=== PATIENT | female | born 1990 | race Caucasian/White ===

== ENCOUNTER → 2016-04-27 | Outpatient (CLI) | payer MEDICAID ==
[~2016-04-27] MED LIST: CEPH500C PO; FERR325T20 PO; IBUP-232 PO; OXYC1TAB63 PO; PREN1PAK2 PO; RANI150T PO; SENN1TAB PO; TUMS500C CHEW
== END ==
LOC: HPND 13:04
PROVIDERS: ATTEND Obstetrics & Gynecology
DX: O35.8XX0 Maternal care for other (suspected) fetal abnormality and damage, not applicable or unspecified (principal); O44.02 Complete placenta previa NOS or without hemorrhage, second trimester
CPT/HCPCS: 76811

== ENCOUNTER 2016-07-05 11:10 | Emergency (ER) | payer MEDICAID ==
[~2016-07-05 11:10] MED LIST changes: -CEPH500C PO; -FERR325T20 PO; -IBUP-232 PO; -OXYC1TAB63 PO; -SENN1TAB PO; -TUMS500C CHEW
--- NOTE | 2016-07-05 12:07 | PD ---
HPI Chief Complaint cramps Date Seen: July 05, 2016 Time Seen: 11:48 (Antonio Beach MD R1) Travel History International Travel<30 Days: No Contact w/Intl Traveler<30Days: No (Antonio Beach MD R1) History of Present Illness HPI 25 y/o at 36/0 weeks presents with cramps. States that around 0500 this morning, she started feeling occasional cramps. Currently, doing well, no pain. Thinks they may be Cobalt-chappell. Otherwise, no complaints. Denies any vaginal bleeding, loss of fluids. Endorses movement. [facility] Denies any chest pain, SOB, leg pain. No headache, RUQ pain, changes in vision, leg edema. No problems in this , other than marginal previa that has resolved. Did have sexual intercourse last night. Para: 0 : 1 (Antonio Beach MD R1) History Past Medical History Medical History: Denies Significant Hx (Antonio Beach MD R1) Obstetric History Obstetric History (Antonio Beach MD) Past Surgical History Narrative Surgical Arthroscopic right shoulder surgery (Antonio Beach MD R1) Family History Family History: Negative (Antonio Beach MD) Social History Alcohol Use: No Tobacco Use: No Substance Abuse: No (Antonio Beach MD R1) Allergies-Medications (Allergen,Severity, Reaction): Coded Allergies: No Known Allergies (Unverified , 06/26/16) Home Meds Active Scripts Ranitidine 150 Mg [id number] Mg PO BID #60 TAB Ref 2 Prov:Geraldine Larson 06/12/16 W/O Vit A W/ Fe Carbo Pack (Citranatal Dha Pack)27-1 & 250 Mg Pack1 Ea PO DAILY #60 BLISTER Ref 11 30 day supply. Prov:Geraldine Larson 02/24/16 Review of Systems General / Constitutional: Weight Gain, No: Fever, Weight Loss, Chills Eyes: No: Blurred Vision, Visual changes, Pain HENT: No: Headaches, Vertigo Cardiovascular: No: Irregular Rhythm, Chest Pain or Discomfort, Palpitations Respiratory: Cough, No: Short of Breath Gastrointestinal: No: Nausea, Vomiting, Diarrhea, Abdominal Pain Genitourinary: Frequency (post-coital), No: Urgency, Dysuria, Pelvic Pain, Discharge, Vaginal Bleeding Musculoskeletal: No: Limited ROM, Weakness Skin: No Rash, No Itching Neurologic: No: Weakness, Dizziness Psychiatric: No: Anxiety, Depression Endocrine: No: Heat Intolerance, Cold Intolerance (Antonio Beach MD R1) Physical Exam Narrative GENERAL: Well-nourished, well-developed patient. SKIN: Warm and dry. HEAD: Normocephalic and atraumatic. EYES: No scleral icterus. No injection or drainage. ENT: No nasal drainage noted. Mucous membranes pink. Airway patent. NECK: Supple, trachea midline. No JVD. CARDIOVASCULAR: Regular rate and rhythm without murmurs, gallops, or rubs. RESPIRATORY: Breath sounds equal bilaterally. No accessory muscle use. ABDOMEN/GI: Abdomen soft, non-tender, bowel sounds present, no rebound, no guarding Gravid to 36 weeks size GENITOURINARY: Sterile speculum exam performed: normal cervix. White, milky discharge. No blood. No pooling of fluids. External Genitalia: intact and normal in appearance Cervix: posterior Dilatation: 0 Effacement: 0 Station: -2 Presentation: vertex Membranes: intact Uterine Contractions: occasional FHT's: Category: 1 Baseline: 140 Reactive: yes Variability: moderate Decels: none EXTREMITIES: No cyanosis or edema. BACK: Nontender without obvious deformity. No CVA tenderness. NEUROLOGICAL: Awake and alert. Motor and sensory grossly within normal limits. Five out of 5 muscle strength in all muscle groups. Normal speech. (Antonio Beach MD R1) Data Data Vital Signs Reviewed: Yes (Antonio Beach MD R1) [facility] Medical Record Reviewed: Yes Interpretation(s) 25 y/o at 36/0 weeks presents with cramps/contractions. Category 1 FHT, occasional contraction Cervical exam: closed, posterior; speculum exam: milky discharge, no blood or fluids Pt had sexual intercourse last night, could be causing uterine stimulation - UA to rule out infection - Monitor FHT - Hydration (Antonio Beach MD R1) Medical Record Reviewed: No Interpretation(s) 25-year-old at 36 weeks Not in labor Prashant Chappell most likely secondary to recent sexual intercourse Urinalysis is negative no UTI Plan We'll discharge home Rest By mouth fluid hydration kick count Keep her next appointment on Sunday (Mikayla Cosme MD) Diagnosis Diagnosis: Primary Impression: 36 weeks gestation of Additional Impression: Prashant Chappell contractions Disposition: 01 DISCHARGE HOME Condition: Stable Addendum Remarks I rounded on the patient. I rounded with the resident. I reviewed the resident' s assessment and plan of care for this patient. I am in agreement with the plan of care for this patient. Urinalysis is negative Patient feeling much better Category 1 tracing We'll discharge home kick counts [facility] (Mikayla Cosme MD) Antonio Beach MD R1 July 05, 2016 12:06 Mikayla Cosme MD July 05, 2016 13:08
[2016-07-05 12:48] LABS: BACTERIA, URINE RARE /hpf; BLOOD, URINE NEG (NEG); COMMENT (UR) CULT NOT INDICATED; CULTURE IF INDICATED CULT NOT INDICATED; GLUCOSE,URINE NEG (NEG); KETONE, URINE NEG (NEG); MUCUS URINE FEW /lpf (OCC); NITRITE,URINE NEG (NEG); PH, URINE 6.5 (5.0-8.5); SQUAMOUS EPITHELIAL CELL URINE 22 /hpf (0-5); URINE COLOR YELLOW (YELLW/STRAW)
[2016-08-08] MEDS ORDERED: PREN1PAK2 PO (14:13)
== END 2016-07-05 13:18 | disposition home or self-care (01) ==
LOC: HOBED 11:10
DX: O47.03 False labor before 37 completed weeks of gestation, third trimester (principal); Z3A.36 36 weeks gestation of pregnancy
CPT/HCPCS: 59025; 81001

== ENCOUNTER 2016-07-26 20:40 | Inpatient (IN) | payer MEDICAID ==
[~2016-07-26] VITALS: Ht 154.9 cm; Wt 81.6 kg
[~2016-07-26 20:40] MED LIST changes: -RANI150T PO
[2016-07-26] MEDS ORDERED: LACTATED RINGER'S 1000 ML INJ 1,000 ML IV PRN (21:50)
[2016-07-26] MEDS: LACTATED RINGER'S 1000 ML INJ 1,000 ML IV SCH (21:50)
--- NOTE | 2016-07-26 21:50 | PD ---
History of Present Illness Date Seen: July 26, 2016 History of Present Illness Patient 25-year-old at 39 weeks [facility] by the [facility] who presents with spontaneous ruptured membranes. Amnio sure is positive. The patient is not cristofer and is having only very minimal pain and discomfort , heart rate tracing is reactive, no CTXs seen .US confirms a vertex presentation. Plan to admit the hospital augment labor as needed. Patient is GBS positive and will begin antibiotics, and postpone digital exam at that she is uncomfortable and or cristofer regularly and then get a baseline exam. Longer we can put off the digitally examining her and keep those digital exam to a minimum can decrease the rate of infection Niranjan He II, MD July 26, 2016 21:50
--- NOTE | 2016-07-26 21:57 | PD ---
HPI Chief Complaint rupture of membranes Date Seen: July 26, 2016 Time Seen: 21:49 Travel History International Travel<30 Days: No Contact w/Intl Traveler<30Days: No History of Present Illness HPI 25 y/o at 39/0 weeks presents for rupture of membranes. States she had a gush of fluids around 7 pm this evening. Denies any vaginal bleeding. Endorses movement. Denies any contractions. No other complaints. Denies any headache, dizziness, changes in vision, RUQ pain, dysuria, leg edema. Pt [facility] No history of hypertension this . Did have ultrasound done earlier in that showed, what sounds like placenta previa, but that has resolved. Para: 0 : 2 : 1 History Past Medical History Medical History: Denies Significant Hx Obstetric History Obstetric History - w/ D&C Past Surgical History Narrative Surgical Left arthroscopic shoulder Family History Family History: Negative Social History Alcohol Use: No Tobacco Use: No Substance Abuse: No Allergies-Medications (Allergen,Severity, Reaction): Coded Allergies: No Known Allergies (Unverified , 07/17/16) Home Meds Active Scripts W/O Vit A W/ Fe Carbo Pack (Citranatal Dha Pack)27-1 & 250 Mg Pack1 Ea PO DAILY #60 BLISTER Ref 11 30 day supply. Prov:Geraldine Larson 02/24/16 Review of Systems General / Constitutional: Weight Gain, No: Fever, Weight Loss, Chills Eyes: No: Blurred Vision HENT: No: Headaches, Vertigo Cardiovascular: No: Irregular Rhythm, Chest Pain or Discomfort, Palpitations Respiratory: No: Cough, Short of Breath Gastrointestinal: No: Nausea, Vomiting, Diarrhea, Abdominal Pain Genitourinary: No: Urgency, Frequency, Dysuria Musculoskeletal: No: Limited ROM, Weakness Skin: No Rash, No Itching Neurologic: No: Weakness, Dizziness Psychiatric: No: Anxiety, Depression Physical Exam Narrative GENERAL: Well-nourished, well-developed patient. SKIN: Warm and dry. HEAD: Normocephalic and atraumatic. EYES: No scleral icterus. No injection or drainage. ENT: No nasal drainage noted. Mucous membranes pink. Airway patent. NECK: Supple, trachea midline. No JVD. CARDIOVASCULAR: Regular rate and rhythm without murmurs, gallops, or rubs. RESPIRATORY: Breath sounds equal bilaterally. No accessory muscle use. ABDOMEN/GI: Abdomen soft, non-tender, bowel sounds present, no rebound, no guarding Gravid to 39 weeks size FHT's: Category: 1 Baseline: 150 Reactive: yes Variability: moderate Decels: none EXTREMITIES: No cyanosis or edema. BACK: Nontender without obvious deformity. No CVA tenderness. NEUROLOGICAL: Awake and alert. Motor and sensory grossly within normal limits. Five out of 5 muscle strength in all muscle groups. Normal speech. Data Data Vital Signs Reviewed: Yes Orders Ob (2e) Additional Admit Info (07/26/16 21:43) Admit To Inpatient (07/26/16 ) Vital Signs (Adult) .Per protocol (07/26/16 21:50) Heart (07/26/16 21:50) Amnioinfusion (07/26/16 21:50) Urinary Catheter Management .ONCE (07/26/16 21:50) Diet Liquid (07/27/16 Breakfast) Lactated Ringer's 1000 Ml Inj (Lr 1000 M (07/26/16 21:50) Lactated Ringer's 1000 Ml Inj (Lr 1000 M (07/26/16 21:50) Sodium Chlorid 0.9% 500 Ml Inj (Ns 500 M (07/26/16 22:00) Sodium Chlor 0.9% 1000 Ml Inj (Ns 1000 M (07/26/16 22:10) Lidocaine 1% Inj (50 Ml) (Xylocaine 1% I (07/26/16 22:00) Citric Acid-Sodium Citrate Liq (Bicitra (07/26/16 22:00) Ondansetron Inj (Zofran Inj) (07/26/16 22:00) Fentanyl Inj (Fentanyl Inj) (07/26/16 22:00) Fentanyl Inj (Fentanyl Inj) (07/26/16 22:00) Penicillin G Potassium Inj (Pfizerpen-G (07/26/16 22:00) Penicillin G Potassium Inj (Pfizerpen-G (07/27/16 02:00) Complete Blood Count With Diff (07/26/16 21:50) Hold Clot (07/26/16 21:50) Abo/Rh Blood Type (07/26/16 21:50) Urinalysis - C+S If Indicated (07/26/16 21:50) Resp Oxygen Non Rebreathe Mask (07/26/16 ) ^ Epidural / Intrathecal Infus (07/26/16 21:50) Oxytocin 30 Units-500ml Premix (Pitocin (07/26/16 22:00) Lidocaine 1% Inj (50 Ml) (Xylocaine 1% I (07/26/16 22:00) Light Mineral Oil (Muri-Lube Oil) (07/26/16 22:00) ^ Non Stress Test (07/26/16 21:50) Response To Medication .Post New Med Administration, Reaction (07/26/16 21:50) ^ Discontinue Medication (07/26/16 21:50) Oxytocin 30 Units-500ml Premix (Pitocin (07/26/16 22:00) Inpatient Certification (07/26/16 ) Specimen To Be Collected PRN (07/26/16 21:50) MDM Medical Record Reviewed: Yes Interpretation(s) 25 y/o at 39/0 weeks presents with SROM. Amnisure postive. Cervical exam deferred at this time to decrease risk of infection Category 1 FHT, no contractions Bedside ultrasound performed, shows vertex position GBS positive -Admit to labor and delivery -Start pitocin -Start Penicillin for GBS+ -Continuous FHT -Anticipate vaginal delivery Diagnosis Diagnosis: Primary Impression: Rupture of membranes with clear amniotic fluid Additional Impression: 39 weeks gestation of Antonio Beach MD R1 July 26, 2016 21:57 Diagnosis: Primary Impression: Rupture of membranes with clear amniotic fluid Additional Impression: 39 weeks gestation of Antonio Beach MD R1 July 26, 2016 21:57
[2016-07-26] MEDS ORDERED: LIDOCAINE HCL 1% 50 ML VIAL I-DERMAL PRN (22:00)
[2016-07-26] MEDS ORDERED: MINERAL OIL 10 ML VIAL TOPICAL PRN (22:00)
[2016-07-26] MEDS ORDERED: ONDANSETRON HCL 4 MG/2 ML VIAL IV PRN (22:00)
[2016-07-26] MEDS ORDERED: PENICILLIN G POTASSIUM INJ 5,000,000 UNITS in SODIUM CHLORIDE 0.9% INJ 100 ML IV ONE (22:00)
[2016-07-26] MEDS ORDERED: SODIUM CHLORID 0.9% 500 ML INJ 500 ML IV PRN (22:00)
[2016-07-26] MEDS ORDERED: LIDOCAINE HCL 1% 50 ML VIAL INFIL PRN (22:00)
[2016-07-26] MEDS ORDERED: OXYTOCIN 30 UNITS-500ML PREMIX 500 ML IV SCH (22:00)
[2016-07-26] MEDS ORDERED: OXYTOCIN 30 UNITS-500ML PREMIX 500 ML IV ONE (22:00)
[2016-07-26] MEDS ORDERED: SODIUM CHLOR 0.9% 1000 ML INJ 1,000 ML IV PRN (22:10)
--- NOTE | 2016-07-26 22:22 | HHI.HP ---
History & Physical H&P HPI HPI Chief Complaint rupture of membranes Date Seen: July 26, 2016 Time Seen: 21:49 Travel History International Travel<30 Days: No Contact w/Intl Traveler<30Days: No History of Present Illness HPI 25 y/o at 39/0 weeks presents for rupture of membranes. States she had a gush of fluids around 7 pm this evening. Denies any vaginal bleeding. Endorses movement. Denies any contractions. No other complaints. Denies any headache, dizziness, changes in vision, RUQ pain, dysuria, leg edema. Pt [facility] No history of hypertension this . Did have ultrasound done earlier in that showed, what sounds like placenta previa, but that has resolved. Para: 0 : 2 : 1 History (Limited) History Past Medical History Medical History: Denies Significant Hx Obstetric History Obstetric History - w/ D&C Past Surgical History Narrative Surgical Left arthroscopic shoulder Family History Family History: Negative Social History Alcohol Use: No Tobacco Use: No Substance Abuse: No Allergies-Medications Allergies-Medications (Allergen,Severity, Reaction): Coded Allergies: No Known Allergies (Unverified , 07/17/16) Home Meds Active Scripts W/O Vit A W/ Fe Carbo Pack (Citranatal Dha Pack)27-1 & 250 Mg Pack1 Ea PO DAILY #60 BLISTER Ref 11 30 day supply. Prov:Geraldine Larson 02/24/16 ROS Review of Systems General / Constitutional: Weight Gain, No: Fever, Weight Loss, Chills Eyes: No: Blurred Vision HENT: No: Headaches, Vertigo Cardiovascular: No: Irregular Rhythm, Chest Pain or Discomfort, Palpitations Respiratory: No: Cough, Short of Breath Gastrointestinal: No: Nausea, Vomiting, Diarrhea, Abdominal Pain Genitourinary: No: Urgency, Frequency, Dysuria Musculoskeletal: No: Limited ROM, Weakness Skin: No Rash, No Itching Neurologic: No: Weakness, Dizziness Psychiatric: No: Anxiety, Depression Physical Exam Physical Exam Narrative GENERAL: Well-nourished, well-developed patient. SKIN: Warm and dry. HEAD: Normocephalic and atraumatic. EYES: No scleral icterus. No injection or drainage. ENT: No nasal drainage noted. Mucous membranes pink. Airway patent. NECK: Supple, trachea midline. No JVD. CARDIOVASCULAR: Regular rate and rhythm without murmurs, gallops, or rubs. RESPIRATORY: Breath sounds equal bilaterally. No accessory muscle use. ABDOMEN/GI: Abdomen soft, non-tender, bowel sounds present, no rebound, no guarding Gravid to 39 weeks size FHT's: Category: 1 Baseline: 150 Reactive: yes Variability: moderate Decels: none EXTREMITIES: No cyanosis or edema. BACK: Nontender without obvious deformity. No CVA tenderness. NEUROLOGICAL: Awake and alert. Motor and sensory grossly within normal limits. Five out of 5 muscle strength in all muscle groups. Normal speech. Data Data Data Vital Signs Reviewed: Yes Orders Ob (2e) Additional Admit Info (07/26/16 21:43) Admit To Inpatient (07/26/16 ) Vital Signs (Adult) .Per protocol (07/26/16 21:50) Heart (07/26/16 21:50) Amnioinfusion (07/26/16 21:50) Urinary Catheter Management .ONCE (07/26/16 21:50) Diet Liquid (07/27/16 Breakfast) Lactated Ringer's 1000 Ml Inj (Lr 1000 M (07/26/16 21:50) Lactated Ringer's 1000 Ml Inj (Lr 1000 M (07/26/16 21:50) Sodium Chlorid 0.9% 500 Ml Inj (Ns 500 M (07/26/16 22:00) Sodium Chlor 0.9% 1000 Ml Inj (Ns 1000 M (07/26/16 22:10) Lidocaine 1% Inj (50 Ml) (Xylocaine 1% I (07/26/16 22:00) Citric Acid-Sodium Citrate Liq (Bicitra (07/26/16 22:00) Ondansetron Inj (Zofran Inj) (07/26/16 22:00) Fentanyl Inj (Fentanyl Inj) (07/26/16 22:00) Fentanyl Inj (Fentanyl Inj) (07/26/16 22:00) Penicillin G Potassium Inj (Pfizerpen-G (07/26/16 22:00) Penicillin G Potassium Inj (Pfizerpen-G (07/27/16 02:00) Complete Blood Count With Diff (07/26/16 21:50) Hold Clot (07/26/16 21:50) Abo/Rh Blood Type (07/26/16 21:50) Urinalysis - C+S If Indicated (07/26/16 21:50) Resp Oxygen Non Rebreathe Mask (07/26/16 ) ^ Epidural / Intrathecal Infus (07/26/16 21:50) Oxytocin 30 Units-500ml Premix (Pitocin (07/26/16 22:00) Lidocaine 1% Inj (50 Ml) (Xylocaine 1% I (07/26/16 22:00) Light Mineral Oil (Muri-Lube Oil) (07/26/16 22:00) ^ Non Stress Test (07/26/16 21:50) Response To Medication .Post New Med Administration, Reaction (07/26/16 21:50) ^ Discontinue Medication (07/26/16 21:50) Oxytocin 30 Units-500ml Premix (Pitocin (07/26/16 22:00) Inpatient Certification (07/26/16 ) Specimen To Be Collected PRN (07/26/16 21:50) MDM MDM Medical Record Reviewed: Yes Interpretation(s) 25 y/o at 39/0 weeks presents with SROM. Amnisure postive. Cervical exam deferred at this time to decrease risk of infection Category 1 FHT, no contractions Bedside ultrasound performed, shows vertex position GBS positive -Admit to labor and delivery -Start pitocin -Start Penicillin for GBS+ -Continuous FHT -Anticipate vaginal delivery Diagnosis Diagnosis: Primary Impression: Rupture of membranes with clear amniotic fluid Additional Impression: 39 weeks gestation of Antonio Beach MD R1 July 26, 2016 22:22
[2016-07-26 22:38] LABS: BASOPHIL # 0.1 TH/MM3 (0-0.2); BASOPHIL % 0.5 % (0.0-2.0); EOSINOPHIL # 0.1 TH/MM3 (0-0.4); EOSINOPHIL % 0.7 % (0.0-4.0); HEMATOCRIT 35.8 % (35.0-46.0); HEMO FLAGS DIFF FINAL; LYMPH % 17.9 % (9.0-44.0); LYMPHOCYTE # 1.9 TH/MM3 (1.0-4.8); MEAN CELL VOLUME 79.9 FL (80.0-100.0); MEAN CORPUSCULAR HEMOGLOBIN 26.7 PG (27.0-34.0); MEAN CORPUSCULAR HGB CONC 33.4 % (32.0-36.0); MONO % 7.1 % (0.0-8.0); NEUT % 73.8 % (16.0-70.0); PLATELET COUNT 216 TH/MM3 (150-450); RED BLOOD COUNT 4.48 MIL/MM3 (4.00-5.30); RED CELL DISTRIBUTION WIDTH 15.5 % (11.6-17.2); WHITE BLOOD COUNT 10.8 TH/MM3 (4.0-11.0)
[2016-07-26] MEDS ORDERED: TUMS500C CHEW (22:38)
[2016-07-26 22:43] VITALS: BP 133/82; PULSE 73; RESP 18; TEMP 98.5
[2016-07-26 22:47] LABS: BLOOD, URINE LARGE (NEG); GLUCOSE,URINE NEG (NEG); KETONE, URINE NEG (NEG); MUCUS URINE FEW /lpf (OCC); NITRITE,URINE NEG (NEG); PH, URINE 5.5 (5.0-8.5); SQUAMOUS EPITHELIAL CELL URINE 12 /hpf (0-5); URINE COLOR YELLOW (YELLW/STRAW)
[2016-07-26 22:48] LABS: COMMENT (UR) CULTURE INDICATED; CULTURE IF INDICATED CULTURE INDICATED
[2016-07-26 23:01] VITALS: BP 131/83; PULSE 76
[2016-07-26 23:33] VITALS: BP 130/88; PULSE 71; RESP 18
[2016-07-27] VITALS (94 sets, daily range): BP systolic 87–145; BP diastolic 34–99; PULSE 57–251; RESP 16–18; TEMP 97.6–98.3; O2SAT 99–100
[2016-07-27] MEDS: PENICILLIN G POTASSIUM INJ 2,500,000 UNITS in SODIUM CHLORIDE 0.9% INJ 100 ML IV SCH ×2 (02:18→06:22)
[2016-07-27] MEDS: CITRIC ACID-SODIUM CITRATE LIQ 30 ML UDC PO SCH ×2 (02:25→10:40)
[2016-07-27] MEDS: LACTATED RINGER'S 1000 ML INJ 1,000 ML IV SCH ×2 (02:37→04:27)
[2016-07-27] MEDS ORDERED: fentaNYL 2MCG-BUPIV 0.125% INJ 100 ML ONE (04:10)
[2016-07-27] MEDS ORDERED: ePHEDrine/NS 25 MG/5 ML SYR ONE (04:52)
[2016-07-27] MEDS ORDERED: fentaNYL 2MCG-BUPIV 0.125% 100 ML EPIDURAL SCH (05:45)
[2016-07-27] MEDS ORDERED: NO SYSTEM NARCOTICS PRN (05:45)
[2016-07-27] MEDS ORDERED: ePHEDrine/NS 25 MG/5 ML SYR IV PRN (05:45)
[2016-07-27] MEDS ORDERED: DO NOT ADMINISTER ANTICOAGULANTS PRN (05:45)
[2016-07-27] MEDS ORDERED: LACTATED RINGER'S 1000 ML INJ 1,000 ML IV ONE (10:38)
[2016-07-27] MEDS ORDERED: ceFAZolin INJ 1,000 MG VIAL ONE (10:49)
[2016-07-27] MEDS ORDERED: OXYTOCIN 10 UNIT/ML AMP ONE (10:49)
--- NOTE | 2016-07-27 10:56 | PD.LABORPN ---
Subjective Subjective Patient afebrile with vital signs stable. Patient denies any complaints at this time. It was explained to the patient that because she is pushing and the baby is not moving that she will likely inevitably need a . In addition, it was also explained that because of her baby's tachycardia, recurrent late decelerations, prolonged decelerations, reduced variability, was also recommended for baby's safety. (Андрей Matthews MD R1) Objective Vital Signs Vital Signs Date Time Temp Pulse Resp B/P Pulse Ox O2 Delivery O2 Flow Rate FiO2 07/27/16 10:05 86 07/27/16 10:00 90 119/56 07/27/16 09:55 76 07/27/16 09:50 67 07/27/16 09:46 69 123/69 07/27/16 09:45 85 07/27/16 09:40 73 07/27/16 09:35 70 07/27/16 09:30 82 109/63 07/27/16 09:30 66 07/27/16 09:20 73 07/27/16 09:15 73 108/46 07/27/16 09:15 74 07/27/16 09:00 72 103/63 07/27/16 09:00 71 07/27/16 08:55 76 07/27/16 08:50 77 07/27/16 08:45 82 07/27/16 08:45 82 100/57 07/27/16 08:40 86 07/27/16 08:35 93 07/27/16 08:30 93 07/27/16 08:30 99 103/73 07/27/16 08:25 86 07/27/16 08:20 82 07/27/16 08:15 87 102/51 07/27/16 08:15 81 07/27/16 08:10 78 07/27/16 08:08 98.1 18 07/27/16 08:05 89 07/27/16 08:00 112 90/75 07/27/16 07:45 137 92/70 07/27/16 07:31 97 108/44 07/27/16 07:25 102 07/27/16 07:20 103 07/27/16 07:16 119 117/83 07/27/16 07:15 79 07/27/16 07:10 90 07/27/16 07:05 81 07/27/16 07:00 85 95/56 07/27/16 07:00 65 07/27/16 07:00 17 07/27/16 06:55 80 07/27/16 06:50 68 07/27/16 06:45 74 07/27/16 06:45 82 98/61 07/27/16 06:40 92 07/27/16 06:35 63 07/27/16 06:30 60 106/66 07/27/16 06:15 61 18 104/63 07/27/16 06:01 75 106/59 07/27/16 05:45 75 103/67 07/27/16 05:35 72 07/27/16 05:31 89 90/69 07/27/16 05:30 74 07/27/16 05:27 98.1 18 07/27/16 05:26 65 116/46 07/27/16 05:25 70 07/27/16 05:21 158 96/71 07/27/16 05:20 103 07/27/16 05:16 75 87/34 07/27/16 05:15 82 07/27/16 04:56 65 07/27/16 04:55 92 07/27/16 04:54 105/82 07/27/16 04:51 103 92/49 07/27/16 04:50 100 89/54 07/27/16 04:50 98 07/27/16 04:48 201 123/93 07/27/16 04:47 251 07/27/16 04:46 209 07/27/16 04:45 18 07/27/16 04:45 99 07/27/16 04:41 86 123/80 07/27/16 04:40 64 07/27/16 04:36 59 145/88 07/27/16 04:35 73 07/27/16 04:31 71 07/27/16 04:30 87 07/27/16 04:30 18 07/27/16 04:27 18 07/27/16 04:26 82 141/97 07/27/16 04:20 72 07/27/16 04:19 65 133/93 07/27/16 03:30 57 129/78 07/27/16 03:28 97.6 18 Objective Pelvic Exam: Dilatation: 10cm Effacement: 100% Station: -1 Presentation: Vertex Membranes: ruptured Uterine Contractions: q3min FHT's: Category: Persistent Category 2 Baseline: 150 Reactive: + Variability: reduced Decels: recurrent late decel's, some prolonged decel's (Андрей Matthews MD R1) Assessment/Plan Problem List: (1) Delivery by section of full-term (2) 39 weeks gestation of Assessment and Plan 25 y/o at 39/1 weeks presented for rupture of membranes. Pt is 10cm/100 %/-1 and pushing does not move baby well. It was explained to the patient that because she is pushing and the baby is not moving that she will likely inevitably need a . In addition, it was also explained that because of her baby's tachycardia, recurrent late decelerations, prolonged decelerations, reduced variability, was also recommended for baby's safety. Plan on Ancef 2 g IV LR IV Nothing by mouth Ultrasound for position SCDs Bean catheter Monitor vital signs D/w Dr. Nuñez (Андрей Matthews MD R1) Assessment and Plan Evaluated patient at bedside with pushing effort. Exam c/c/0 with significant caput. No descent of head with maternal pushing effort. additionally, FHR persistent cat 2 tracing. primary CD recommended to patient. r/b/a/ explained and all questions answered. pt agreeable with plan. (Noah Nuñez MD) Андрей Matthews MD R1 Jul 27, 2016 10:56 Noah Nuñez MD Jul 27, 2016 14:24
[2016-07-27] MEDS ORDERED: LACTATED RINGER'S 1000 ML INJ 1,000 ML IV SCH ×2 (11:08→17:13)
[2016-07-27] MEDS ORDERED: EPIDURAL-DIPHENHYDRAMINE HCL 50 MG/ML VIAL IV PUSH PRN (11:10)
[2016-07-27] MEDS ORDERED: EPIDURAL-DIPHENHYDRAMINE HCL 50 MG CAP PO PRN (11:10)
[2016-07-27] MEDS ORDERED: EPIDURAL-NO SYSTEMIC NARCOTICS PRN (11:10)
[2016-07-27] MEDS ORDERED: EPIDURAL-NALOXONE HCL 0.4 MG/ML AMP IV PRN (11:10)
[2016-07-27] MEDS ORDERED: EPIDURAL-DO NOT ADMINISTER ANTICOAGULANTS PRN (11:10)
[2016-07-27] MEDS ORDERED: MORPHINE SULFATE PF 5 MG/10 ML VIAL ONE (11:21)
[2016-07-27] MEDS ORDERED: DICLOFENAC SODIUM 37.5 MG/ML VIAL IV PUSH ONE (11:21)
[2016-07-27] MEDS ORDERED: ONDANSETRON HCL 4 MG/2 ML VIAL ONE (11:22)
[2016-07-27] MEDS ORDERED: ceFAZolin 2 GM PREMIX 50 ML IV SCH (11:45)
[2016-07-27] MEDS ORDERED: SODIUM CHLORIDE 0.9% FLUSH 10 ML FLUSH IV FLUSH PRN (12:15)
[2016-07-27] MEDS ORDERED: CITRIC ACID-SODIUM CITRATE LIQ 30 ML UDC PO SCH (12:15)
[2016-07-27] MEDS ORDERED: OXYTOCIN 30 UNITS-500ML PREMIX 500 ML IV ONE (12:15)
[2016-07-27] MEDS ORDERED: oxyCODONE/ACETAMINOPHEN 5 MG/325 MG TAB PO PRN (12:15)
[2016-07-27] MEDS ORDERED: ONDANSETRON HCL 4 MG/2 ML VIAL IV PUSH PRN (12:15)
[2016-07-27] MEDS ORDERED: SIMETHICONE 80 MG CHEWABLE TAB PO PRN (13:00)
[2016-07-27] MEDS ORDERED: ACETAMINOPHEN 325 MG TAB PO PRN (13:00)
[2016-07-27] MEDS ORDERED: SODIUM BICARBONATE 8.4% INJ 50 MEQ/50 ML SYR IV ONE (13:07)
[2016-07-27] MEDS ORDERED: LACTATED RINGER'S 1,000 ML BAG IV ONE (13:07)
[2016-07-27] MEDS ORDERED: LIDOCAINE 2%/EPINEPHrine PF 1:200,000 20ML SDV OTHER ONE (13:07)
[2016-07-27] MEDS ORDERED: diphenhydrAMINE HCL 50 MG/ML VIAL IV PRN (15:00)
[2016-07-27] MEDS: DICLOFENAC SODIUM 37.5 MG/ML VIAL IV PUSH SCH (20:48)
[2016-07-27] MEDS ORDERED: ZOLPIDEM TARTRATE 5 MG TAB PO PRN (21:00)
[2016-07-27] MEDS ORDERED: SODIUM CHLORIDE 0.9% FLUSH 10 ML FLUSH IV FLUSH SCH (21:00)
[2016-07-27] MEDS ORDERED: OXYTOCIN 30 UNITS-500ML PREMIX 500 ML IV PRN (22:15)
[2016-07-28 01:00] VITALS: BP 101/64; PULSE 101; RESP 16; TEMP 98.7
[2016-07-28 03:00] VITALS: RESP 14
[2016-07-28] MEDS: DICLOFENAC SODIUM 37.5 MG/ML VIAL IV PUSH SCH ×2 (04:30→04:50)
[2016-07-28 04:48] VITALS: BP 118/75; PULSE 98; RESP 18; TEMP 98.4
[2016-07-28] MEDS: oxyCODONE/ACETAMINOPHEN 5 MG/325 MG TAB PO PRN ×3 (04:59→18:28)
[2016-07-28 06:03] LABS: BASOPHIL % 0.2 % (0.0-2.0); EOSINOPHIL % 0.2 % (0.0-4.0); HEMATOCRIT 22.4 % (35.0-46.0); HEMO FLAGS DIFF FINAL; LYMPH % 11.1 % (9.0-44.0); LYMPHOCYTE # 1.3 TH/MM3 (1.0-4.8); MEAN CELL VOLUME 81.7 FL (80.0-100.0); MEAN CORPUSCULAR HEMOGLOBIN 26.2 PG (27.0-34.0); MEAN CORPUSCULAR HGB CONC 32.1 % (32.0-36.0); MONO % 6.2 % (0.0-8.0); NEUT % 82.3 % (16.0-70.0); PLATELET COUNT 131 TH/MM3 (150-450); RED BLOOD COUNT 2.75 MIL/MM3 (4.00-5.30); RED CELL DISTRIBUTION WIDTH 15.8 % (11.6-17.2); WHITE BLOOD COUNT 12.2 TH/MM3 (4.0-11.0)
--- NOTE | 2016-07-28 09:32 | HHI.OB ---
Subjective Post Operative Day: 1 Remarks Patient is a 25-year-old delivered at 39 weeks and 1 day. Patient is day 1 after for nonreassuring heart tracing and failure to progress. Patient's pain is 3-4 out of 10 at rest and 7 out of 10 wall walking, but is mostly well-controlled and tolerable. Patient reports eating and drinking without any nausea or vomiting. Patient reports vaginal bleeding like a period. Patient has passed gas but no bowel movements. Patient is walking without lower extremity pain or shortness of breath. Patient reports desire for contraception with arm implant and breast-feeding. (Андрей Matthews MD R1) Objective Vitals/I&O Except for some low blood pressures to 90s/50s and tachycardia to the 110s, followed by persistent tachycardia to the 100s, pt afebrile with vital signs stable and within normal limits overnight. Vital Signs Date Time Temp Pulse Resp B/P Pulse Ox O2 Delivery O2 Flow Rate FiO2 07/28/16 04:48 98.4 98 18 118/75 07/28/16 03:00 14 07/28/16 01:00 98.7 101 16 101/64 07/27/16 23:00 16 07/27/16 22:00 16 07/27/16 20:40 97.7 07/27/16 20:40 105 18 107/74 07/27/16 20:00 16 07/27/16 14:00 84 18 102/64 07/27/16 14:00 98.0 07/27/16 13:15 93 18 100 07/27/16 13:15 103/52 07/27/16 13:15 98.1 07/27/16 13:03 87 18 96/65 99 07/27/16 12:50 99 18 90/52 100 07/27/16 12:35 116 18 90/53 100 07/27/16 12:20 105/65 07/27/16 12:20 94 100 07/27/16 12:16 18 07/27/16 12:16 98.2 07/27/16 10:35 68 100 07/27/16 10:31 99 139/99 07/27/16 10:20 76 100 07/27/16 10:15 69 100 07/27/16 10:05 86 07/27/16 10:00 90 119/56 07/27/16 09:55 76 07/27/16 09:50 67 07/27/16 09:46 69 123/69 07/27/16 09:45 85 07/27/16 09:40 73 07/27/16 09:35 70 (Андрей Matthews MD R1) Result Diagram: 07/28/16 0459 Objective Remarks GENERAL: Well-nourished, well-developed patient. CARDIOVASCULAR: Regular rate and rhythm without murmurs, gallops, or rubs. RESPIRATORY: Breath sounds equal bilaterally. No accessory muscle use. ABDOMEN/GI: Abdomen soft, non-tender, bowel sounds present. Incision: Clean, dry and intact. Fundus: Firm, non-tender at umbilicus. GENITOURINARY: Light to moderate bleeding. EXTREMITIES: No cyanosis or edema, non-tender, without signs of DVT. Medications and IVs Current Medications Medications (Trade) Dose Ordered Sig/Bill Route Start Time Stop Time Status Last Admin Fentanyl/ Bupivacaine HCl 100 ml @ 0 mls/hr TITRATE EPIDURAL 07/27/16 05:45 (Lr 1000 ml Inj) 1,000 ml @ 100 mls/hr Q10H IV 07/27/16 17:13 07/28/16 13:12 (NS Flush) 2 ml BID IV FLUSH 07/27/16 21:00 07/27/16 20:49 (NS Flush) 2 ml UNSCH PRN IV FLUSH 07/27/16 12:15 (Mylicon Chew) 80 mg QID PRN PO 07/27/16 13:00 (Tylenol) 650 mg Q6H PRN PO 07/27/16 13:00 (Motrin) 600 mg Q6H PRN PO 07/27/16 13:00 (Percocet 5-325 Mg) 1 tab Q4H PRN PO 07/27/16 12:15 07/28/16 04:59 (Percocet 5-325 Mg) 2 tab Q4H PRN PO 07/27/16 12:15 (Jovita-Colace) 2 tab Q12HR PRN PO 07/27/16 21:00 (Ambien) 5 mg HS PRN PO 07/27/16 21:00 (M-M-R Ii Inj) 0.5 ml ONCE ONCE SQ 07/28/16 16:00 07/28/16 16:01 (Boostrix Inj) 0.5 ml ONCE ONCE IM 07/28/16 16:00 07/28/16 16:01 07/28/16 04:51 (Zofran Inj) 4 mg Q6H PRN IV PUSH 07/27/16 12:15 (Benadryl Inj) 25 mg Q6H PRN IV 07/27/16 15:00 07/27/16 15:02 Miscellaneous Information NO SYSTEMIC NARCOTICS TO BE GIVEN FO... UNSCH PRN .XX 07/27/16 11:10 07/28/16 11:09 (Narcan Inj) 0.4 mg UNSCH PRN IV 07/27/16 11:10 07/28/16 11:09 (Benadryl Inj) 25 mg Q6H PRN IV PUSH 07/27/16 11:10 07/28/16 11:09 (Benadryl) 50 mg Q6H PRN PO 07/27/16 11:10 07/28/16 11:09 Miscellaneous Information ALL NURSING DEPARTMENTS UNSCH PRN .XX 07/27/16 11:10 07/28/16 11:09 (Ferrous Sulfate) 325 mg BID PO 07/28/16 09:15 (Андрей Matthews MD R1) Assessment/Plan Problem List: (1) Delivery by section of full-term (2) 39 weeks gestation of Assessment and Plan Patient is a 25-year-old delivered at 39 weeks and 1 day. Patient is day 1 after for nonreassuring heart tracing and failure to progress. Patient was counseled to do 6 weeks of pelvic rest. Patient was counseled to follow up in 6 weeks. Patient requested follow-up and contraception with arm implant. 1. s/p --AF VSS --Continue routine care --Motrin and Percocet when necessary for pain --Encourage OOB --Pelvic rest for 6 weeks will need follow-up appointment at that time. Also follow-up in one week for incision check. --Contraception: Patient requests arm implant like Nexplanon or Implanon. Gave her our clinic information so she can call and schedule an appointment. --Anticipate discharge in 2 days 2. anemia in the context of blood loss during --oral iron with ferrous sulfate 325 mg by mouth 3 times a day with meals D/w Dr. Nuñez. Discharge Planning Anticipate discharge in 2 days (Андрей Matthews MD R1) Attending Attestation The exam, history, and the medical decision-making described in the above note were completed with the assistance of the resident provider. I reviewed and agree with the findings presented. I attest that I had a [id number] encounter with the patient on the same day, and personally performed and documented my assessment and findings in the medical record. (Noah Nuñez MD) Андрей Matthews MD R1 Jul 28, 2016 09:32 Noah Nuñez MD Jul 31, 2016 10:54
[2016-07-28] MEDS: IBUPROFEN 600 MG TAB PO PRN ×2 (10:58→18:29)
[2016-07-28] MEDS: FERROUS SULFATE 325 MG (65 MG ELEMENTAL IRON) TAB PO SCH ×2 (10:58→20:04)
[2016-07-28] MEDS ORDERED: DIPHTH/TETANUS/ACEL PERTUSSIS (BOOSTER) 0.5 ML VIAL/PFS IM ONE (16:00)
[2016-07-28] MEDS ORDERED: MEASLES, MUMPS, RUBELLA VACCINE 0.5 ML VIAL SQ ONE (16:00)
--- NOTE | 2016-07-28 21:05 | MP ---
cc: YONY NUÑEZ MD DATE OF 88 DATE OF SURGERY 07/27/16 PREOPERATIVE DIAGNOSIS 1. Intrauterine at 39 weeks and one day 2. Arrest of descent, suspected encephalopelvic disproportion. 3. Persistent category 2 heart rate tracing. POSTOPERATIVE DIAGNOSIS 1. Intrauterine at 39 weeks and one day 2. Arrest of descent, suspected encephalopelvic disproportion. 3. Persistent category 2 heart rate tracing. PROCEDURE Primary low transverse caesarean delivery SURGEON Jean Paul Nuñez MD [employer]Y 1 Jax Matthews. ANESTHESIA Spinal IV FLUIDS 2200 mL Crystalloid URINE OUTPUT 100 mL of blood tinged urine ESTIMATED BLOOD LOSS 500 mL DRAINS Bean to gravity COMPLICATIONS None. INDICATION The patient is a 25 year old 2, para 0 with intrauterine at 39 weeks and one day who was admitted with ruptured membranes/labor. The patient progressed to complete dilation. However, no descent of the head was noted despite adequate maternal pushing effort. On exam, head was at 0 station and with significant caput present. Additionally, heart rate became persistently category II with tachycardia and intermittent heart rate decelerations. Therefore, caesarean delivery was recommended to patient. Risks, benefits and alternatives were explained and patient consent to the procedure. PREOPERATIVE ANTIBIOTICS Ancef 2 grams IV. SURGICAL SPECIMEN None. PROCEDURE IN DETAIL After the risks, benefits and alternatives of primary caesarean delivery were discussed with the patient as well as the indication for the procedure the patient was taken to the operating room. She had previously placed epidural anesthesia. SCDs were placed on the patient's lower extremity. She also had a previously placed Bean catheter. The patient was prepped and draped in the normal sterile fashion in the dorsal supine position with a left-da silva tilt. Time out procedure was performed per protocol. Anesthesia was tested and found to be adequate. A Pfannenstiel incision was made with a scalpel and carried down to the underlying fascia. The fascia was incised on either side of the midline and the incision was extended laterally with the Rae scissors. The superior aspect of the fascial incision was grasped with Indu clamps and the rectus muscles were dissected off bluntly and sharply. This was repeated along the inferior aspect of the fascial incision. The rectus muscles were in the midline. The underlying peritoneum was entered bluntly. The incision was stretched manually. Bladder blade was placed. Bladder flap was created with Metzenbaum scissors and blunt and sharp dissection. Bladder blade was replaced over the bladder flap. Incision was then made in the lower uterine segment with the scalpel. Once membranes were visualized, the incision was extended with the index fingers. The 's head was then elevated out of the incision with up retraction and fundal pressure. The body followed with gentle traction. Mouth and nose were bulb suctioned. After 45 second delay, the cord was clamped and cut and handed off to the waiting team. The placenta was the delivered with fundal massage. The uterus was exteriorized and cleared of all clots and debris. The uterine incision was repaired with #1 Chromic in a running lock fashion. Additional figure of eight sutures were placed along the left side of the incision where continued bleeding from the uterine artery was present. After additional sutures were placed, adequate hemostasis was confirmed. The posterior cul-de-sac was then irrigated and cleared of all clots and debris. The uterus was then returned to the abdomen. The gutters were irrigated and suctioned. The incision was irrigated and suctioned and reinspected. Adequate hemostasis was present. Some Kristi hemostatic powder was placed along the uterine incision. Four pieces of Seprafilm were then placed over the uterine fundus and the uterine incision. The rectus muscles were loosely reapproximated with two interrupted sutures of 2-0 Chromic. The fascia was then closed with #1 Chromic in a running fashion. The subcutaneous tissue was irrigated and coagulated and three figure of eight sutures of 2-0 Vicryl were placed to reapproximate the subcutaneous space. The skin was then closed with 4-0 Monocryl in a subcuticular fashion. The patient tolerated the procedure well. Sponge, lap, needle and instrument counts were reported as correct times three. The patient was transported to the recovery room with in stable condition. SURGICAL FINDINGS 1. Normal pelvic anatomy 2. Male in left occiput transverse position with significant molding and caput of the head present. Time of delivery 11:16. weight 3860 grams. Apgars 8 and 9. 3. Intact placenta with three vessel cord. 4. Hemostasis at completion of procedure. Morris Huffman/ /12:18 PM /8:36 PM
[2016-07-29] MEDS: IBUPROFEN 600 MG TAB PO PRN ×3 (02:35→15:30)
--- NOTE | 2016-07-29 07:07 | HHI.OB ---
Subjective Post Operative Day: 2 Remarks Pt seen and examined this morning. Postoperative day #2 AFVSS overnight. Incision nondraining. Decreased lochia. Denies dysuria. No breast tenderness. She is feeding the baby via breast and bottle. Appetite good. No nausea or vomiting. Patient has had a bowel movement. Ambulating well. Denies calf pain or shortness of breath. Otherwise, she is doing well this morning and has no other concerns. Objective Result Diagram: 07/28/16 0459 Objective Remarks GENERAL: Well-nourished, well-developed patient. CARDIOVASCULAR: Regular rate and rhythm without murmurs, gallops, or rubs. RESPIRATORY: Breath sounds equal bilaterally. No accessory muscle use. ABDOMEN/GI: Abdomen soft, non-tender, bowel sounds present. Incision: Clean, dry and intact. Fundus: Firm, non-tender at umbilicus. GENITOURINARY: Light to moderate bleeding. EXTREMITIES: No cyanosis or edema, non-tender, without signs of DVT. Medications and IVs Current Medications Medications (Trade) Dose Ordered Sig/Bill Route Start Time Stop Time Status Last Admin (fentaNYL 2MCG-BUPIV 0.125% INJ) 100 ml @ 0 mls/hr TITRATE EPIDURAL 07/27/16 05:45 (NS Flush) 2 ml BID IV FLUSH 07/27/16 21:00 07/27/16 20:49 (NS Flush) 2 ml UNSCH PRN IV FLUSH 07/27/16 12:15 (Mylicon Chew) 80 mg QID PRN PO 07/27/16 13:00 (Tylenol) 650 mg Q6H PRN PO 07/27/16 13:00 (Motrin) 600 mg Q6H PRN PO 07/27/16 13:00 07/29/16 02:35 (Percocet 5-325 Mg) 1 tab Q4H PRN PO 07/27/16 12:15 07/28/16 18:28 (Percocet 5-325 Mg) 2 tab Q4H PRN PO 07/27/16 12:15 07/29/16 02:35 (Jovita-Colace) 2 tab Q12HR PRN PO 07/27/16 21:00 (Ambien) 5 mg HS PRN PO 07/27/16 21:00 (Zofran Inj) 4 mg Q6H PRN IV PUSH 07/27/16 12:15 (Benadryl Inj) 25 mg Q6H PRN IV 07/27/16 15:00 07/27/16 15:02 (Ferrous Sulfate) 325 mg BID PO 07/28/16 09:15 07/28/16 20:04 (Ferrous Sulfate) 325 mg TIDPC PO 07/28/16 13:30 Assessment/Plan Problem List: (1) Delivery by section of full-term infant (2) 39 weeks gestation of Assessment and Plan Patient is a 25-year-old delivered at 39 weeks and 1 day. Patient is day 2 after for nonreassuring heart tracing and failure to progress. Patient was counseled to do 6 weeks of pelvic rest. Patient was counseled to follow up in 6 weeks. Patient requested follow-up and contraception with arm implant. 1. s/p --AF VSS --Continue routine care --Motrin and Percocet when necessary for pain --Encourage OOB --Pelvic rest for 6 weeks will need follow-up appointment at that time. Also follow-up in one week for incision check. --Contraception: Patient requests arm implant like Nexplanon or Implanon. Gave her our clinic information so she can call and schedule an appointment. --Anticipate discharge tomorrow 2. Anemia in the context of blood loss during --Oral iron with ferrous sulfate 325 mg by mouth 3 times a day with meals D/w Dr. He Discharge Planning Anticipate discharge tomorrow Sonny Lawson MD R1 Jul 29, 2016 07:07
[2016-07-29 07:30] VITALS: BP 133/75; PULSE 76; RESP 16; TEMP 98.2
[2016-07-29] MEDS: oxyCODONE/ACETAMINOPHEN 5 MG/325 MG TAB PO PRN ×3 (08:45→18:03)
[2016-07-29] MEDS: FERROUS SULFATE 325 MG (65 MG ELEMENTAL IRON) TAB PO SCH ×3 (08:46→18:02)
[2016-07-29] MEDS: DOCUSATE SODIUM 50 MG/SENNA 8.6 MG TAB PO PRN (18:02)
[2016-07-29 20:00] VITALS: BP 138/84; PULSE 78; RESP 18; TEMP 98.3
[2016-07-30] MEDS: IBUPROFEN 600 MG TAB PO PRN ×2 (05:50→12:59)
[2016-07-30] MEDS: oxyCODONE/ACETAMINOPHEN 5 MG/325 MG TAB PO PRN (05:51)
--- NOTE | 2016-07-30 10:08 | HHI.OB ---
Subjective Post Operative Day: 3 Remarks 25 year old female s/p due to failure to descent/nonreassuring strip at 39/1 wks gestation, POD 3. AFVSS. Patient reports she is feeling well. Bleeding is decreasing and pain is well-controlled. She is breast and formula feeding and bonding well with baby. Ambulating without difficulties. She is tolerating a diet without nausea or vomiting. She has passed gas. Denies chest pain, dysuria, or shortness of breath. (Yasmin Rayo MD R2) Objective Vitals/I&O Vital Signs Date Time Temp Pulse Resp B/P Pulse Ox O2 Delivery O2 Flow Rate FiO2 07/29/16 20:00 98.3 78 18 138/84 (Yasmin Rayo MD R2) Result Diagram: 07/28/16 0459 Objective Remarks GENERAL: Well-nourished, well-developed patient. CARDIOVASCULAR: Regular rate and rhythm without murmurs, gallops, or rubs. RESPIRATORY: Breath sounds equal bilaterally. No accessory muscle use. ABDOMEN/GI: Abdomen soft, non-tender Incision: Clean, dry and intact. Fundus: Firm, non-tender at umbilicus. GENITOURINARY: Light to moderate bleeding. EXTREMITIES: No cyanosis or edema, non-tender, without signs of DVT. Medications and IVs Current Medications Medications (Trade) Dose Ordered Sig/Bill Route Start Time Stop Time Status Last Admin (fentaNYL 2MCG-BUPIV 0.125% INJ) 100 ml @ 0 mls/hr TITRATE EPIDURAL 07/27/16 05:45 (NS Flush) 2 ml BID IV FLUSH 07/27/16 21:00 07/27/16 20:49 (NS Flush) 2 ml UNSCH PRN IV FLUSH 07/27/16 12:15 (Mylicon Chew) 80 mg QID PRN PO 07/27/16 13:00 (Tylenol) 650 mg Q6H PRN PO 07/27/16 13:00 (Motrin) 600 mg Q6H PRN PO 07/27/16 13:00 07/30/16 05:50 (Percocet 5-325 Mg) 1 tab Q4H PRN PO 07/27/16 12:15 07/30/16 05:51 (Percocet 5-325 Mg) 2 tab Q4H PRN PO 07/27/16 12:15 07/29/16 02:35 (Jovita-Colace) 2 tab Q12HR PRN PO 07/27/16 21:00 07/29/16 18:02 (Ambien) 5 mg HS PRN PO 07/27/16 21:00 (Zofran Inj) 4 mg Q6H PRN IV PUSH 07/27/16 12:15 (Benadryl Inj) 25 mg Q6H PRN IV 07/27/16 15:00 07/27/16 15:02 (Ferrous Sulfate) 325 mg TIDPC PO 07/28/16 13:30 07/29/16 18:02 (Yasmin Rayo MD R2) Assessment/Plan Problem List: (1) Delivery by section of full-term infant (2) 39 weeks gestation of Assessment and Plan 25 yo female s/p due to nonreassuring strip/failure to descend POD 3. - AFVSS - Continue routine care * Oral iron with ferrous sulfate 325 mg by mouth 3 times a day with meals due to blood loss during c/s - Motrin and Percocet PRN pain - Encourage OOB - Pelvic rest x 6 wks. Will need a f/u appt in 1wk for incision check. - Contraception: Options discussed. Undecided on what form at this time. Would like Depo-Provera until she follows up with her [facility] for further discussion. - Recommend post follow up in 1 wk - Anticipate D/C today sdw Dr. Mansfield Discharge Planning Today (Yasmin Rayo MD R2) Attending Attestation POD#3 s/p Doing well asymptomatic PP anemia D/c home today F/u one week for incision check Patient seen and examined with Dr. Rayo (Latosha Mansfield MD) Yasmin Rayo MD R2 Jul 30, 2016 10:08 Latosha Mansfield MD Aug 04, 2016 09:40
[2016-07-30] MEDS ORDERED: IBUP-232 PO (10:12)
[2016-07-30] MEDS ORDERED: OXYC1TAB63 PO (10:12)
[2016-07-30] MEDS ORDERED: FERR325T20 PO (10:12)
[2016-07-30] MEDS ORDERED: SENN1TAB PO (10:12)
--- NOTE | 2016-07-30 10:13 | HHI.DCPOC ---
Discharge Care Plan Diagnosis: (1) Delivery by section of full-term infant Report Symptoms to Your Doctor -Temperature above 100.5 degrees -Redness, of incision or excessive or foul smelling drainage -Unusual pain or calf pain -Increased vaginal bleeding -Painful or difficulty urinating -Feelings of extreme sadness or anxiety after 2 weeks Goals to Promote Your Health * To prevent worsening of your condition and complications * To maintain your health at the optimal level Directions to Meet Your Goals Take your medications as prescribed Follow your dietary instruction Follow activity as directed Ensure plenty of rest for recovery Drink fluids for hydration Keep your appointments as scheduled Take your immunizations and boosters as scheduled If your symptoms worsen call your PCP, if no PCP go to Urgent Care Center or Emergency Room Smoking is Dangerous to Your Health. Avoid second hand smoke Call the 24-hour crisis hotline for domestic abuse at Yasmin Rayo MD R2 Jul 30, 2016 10:13 Latosha Mansfield MD Aug 04, 2016 09:42
[2016-07-30] MEDS ORDERED: medroxyPROGESTERone ACETATE SUSP 150 MG/ML SYRINGE IM ONE (10:15)
[2016-07-30] MEDS: DOCUSATE SODIUM 50 MG/SENNA 8.6 MG TAB PO PRN (12:58)
[2016-07-30] MEDS: FERROUS SULFATE 325 MG (65 MG ELEMENTAL IRON) TAB PO SCH (13:00)
[2016-08-08] MEDS ORDERED: PREN1PAK2 PO (14:13)
== END 2016-07-30 14:00 | disposition home or self-care (01) | DRG 766 ==
LOC: HOBED 20:40 → H2EA 21:44 → H1EA 07-27 13:46
PROVIDERS: ADMIT Obstetrics & Gynecology Maternal & Fetal Medicine; ATTEND Obstetrics & Gynecology Maternal & Fetal Medicine
PROC: 10D00Z1 Extraction of Products of Conception, Low, Open Approach (ICD-10-PCS; principal; 2016-07-26)
DX: O62.1 Secondary uterine inertia (principal); D50.0 Iron deficiency anemia secondary to blood loss (chronic); O99.02 Anemia complicating childbirth; O76 Abnormality in fetal heart rate and rhythm complicating labor and delivery; O99.824 Streptococcus B carrier state complicating childbirth; Z37.0 Single live birth; Z3A.39 39 weeks gestation of pregnancy; O32.4XX0 Maternal care for high head at term, not applicable or unspecified
CPT/HCPCS: 59025; 81001; 84112; 85025; 86900; 86901; 87086; 90715; 99285; C1765; J0690; J1050; J1130; J1200; J2274; J2405; J2540; J2590; J3010; J7120

== ENCOUNTER 2016-09-19 16:52 | Emergency (ER) | payer MEDICAID ==
[~2016-09-19] VITALS: Ht 154.9 cm; Wt 67.0 kg
[~2016-09-19 16:52] MED LIST changes: +FERR325T20 PO; +IBUP-232 PO; +TUMS500C CHEW
[2016-09-19 16:55] VITALS: BP 113/70; PULSE 70; RESP 14; TEMP 97.9; O2SAT 99
--- NOTE | 2016-09-19 19:01 | PD ---
HPI Chief Complaint: Laceration/Skin Injury Time Seen by Provider: 18:30 Travel History International Travel<30 days: No Contact w/Intl Traveler<30days: No Traveled to known affect area: No History of Present Illness HPI 25-year-old female since emergency department for evaluation of laceration left hand. Patient reports she was attempting to open a sliding glass door when the window broke cutting her left hand. She denies any possibility of glass within the wound. She reports normal sensation and full range of motion of all digits in the hand. The bleeding is well-controlled. Tetanus immunization unknown [facility] Past Medical History Medical History: Denies Significant Hx Tetanus Vaccination: < 5 Years Influenza Vaccination: No ?: Not Past Surgical History Section: Yes Social History Alcohol Use: No Tobacco Use: No Substance Use: No Allergies-Medications (Allergen,Severity, Reaction): Coded Allergies: No Known Allergies (Unverified , 09/19/16) Reported Meds & Prescriptions Reported Meds & Active Scripts Active Citranatal Dha Pack ( W/O Vit A W/ Fe Carbo Pack) 27-1 & 250 Mg Pack 1 Ea PO DAILY 30 day supply. Review of Systems Except as stated in HPI: all other systems reviewed are Neg Physical Exam Narrative GENERAL: Well-nourished, well-developed patient. SKIN: Focused skin assessment warm/dry. 2 cm flap lack left hand. HEAD: Normocephalic. EYES: No scleral icterus. No injection or drainage. NECK: Supple, trachea midline. No JVD or lymphadenopathy. CARDIOVASCULAR: Regular rate and rhythm without murmurs, gallops, or rubs. RESPIRATORY: Breath sounds equal bilaterally. No accessory muscle use. GASTROINTESTINAL: Abdomen soft, non-tender, nondistended. MUSCULOSKELETAL: No cyanosis, or edema. Left hand 2 cm flap lack to the palm. Patient has full range of motion of all fingers. No tendon injury or foreign body visualized within the wound. Normal sensation. BACK: Nontender without obvious deformity. No CVA tenderness. Data Data Last Documented VS Vital Signs Date Time Temp Pulse Resp B/P Pulse Ox O2 Delivery O2 Flow Rate FiO2 09/19/16 16:55 97.9 70 14 113/70 99 Orders Tetanus/Diphtheria Tox Adult (Tetanus/Di (09/19/16 19:15) MDM Medical Decision Making Medical Screen Exam Complete: Yes Emergency Medical Condition: Yes Differential Diagnosis Hand laceration, clinically ruled out tendon laceration, clinically ruled out retained foreign body Narrative Course 25-year-old female with 2 cm laceration left hand. There was no tendon injury or foreign body visualized. Patient has full range of motion and normal sensation hand. X-ray was ordered to rule out retained glass patient declined this imaging discussed risks. She reports she will return if she has pain or swelling within the next couple days. The wound was thoroughly examined and no glass foreign body was identified. The wound was sutured closed. Wound care discussed patient agrees to return for suture removal in 7-10 days. Procedures Procedure Narrative LACERATION LOCATION: Left hand LENGTH: 2 cm NUMBER OF STITCHES/GONSALO: [-3 ] REPAIR: The area of the laceration was prepped with Betadine and sterilely draped. The laceration was infiltrated with 1% lidocaine. The wound was copiously irrigated and explored without evidence of foreign body, tendon injury or neurovascular injury. The wound was closed using 4-0 Ethilon. This was a layer layer repair. A sterile dressing was applied. The patient was advised to keep the dressing clean and dry. Patient tolerated the procedure well. Diagnosis Primary Impression: Hand laceration Qualified Code: S61.412A - Laceration of left hand without foreign body, initial encounter Referrals: Primary Care Physician Additional Instructions: Sutures need to be removed in 7-10 days. Do not submerge the hand in water. Return to the emergency department if you have increasing pain, swelling, redness or drainage from the site. Disposition: 01 DISCHARGE HOME Condition: Stable Ting Parrish Sep 19, 2016 19:01
[2016-09-19] MEDS ORDERED: TETANUS/DIPHTHERIA TOXOID ADULT 0.5 ML VIAL IM ONE (19:15)
[2016-10-05] MEDS ORDERED: CLIN2CRE5 VAGINAL (16:14)
== END 2016-09-19 19:31 | disposition home or self-care (01) ==
LOC: NEPK 16:52
DX: S61.412A Laceration without foreign body of left hand, initial encounter (principal); W25.XXXA Contact with sharp glass, initial encounter; Z79.899 Other long term (current) drug therapy; Z23 Encounter for immunization
CPT/HCPCS: 12001; 90471; 90714